=== PATIENT | female | born 1975 | race Caucasian/White ===

== ENCOUNTER 2022-03-28 22:24 | Inpatient (IN) | payer OTHER ==
[~2022-03-28] VITALS: Ht 167.6 cm; Wt 81.6 kg
[~2022-03-28 22:24] MED LIST: COZAAR25 MG PO
[2022-03-31] MEDS ORDERED: MEGESTROL ACETA40 MG PO (13:01)
== END 2022-03-31 13:35 | disposition home or self-care (01) | DRG 761 ==
LOC: ER 22:24 → SEC-K 03-29 16:33 → OB/GYN 03-29 16:33
PROVIDERS: ADMIT Obstetrics & Gynecology; ATTEND Obstetrics & Gynecology
PROC: BU4CZZZ Ultrasonography of Uterus and Ovaries (ICD-10-PCS; 2022-03-29)
PROC: 30233N1 Transfusion of Nonautologous Red Blood Cells into Peripheral Vein, Percutaneous Approach (ICD-10-PCS; principal; 2022-03-30)
DX: N92.1 Excessive and frequent menstruation with irregular cycle (principal); Z20.822 Contact with and (suspected) exposure to COVID-19

== ENCOUNTER 2022-04-05 05:55 | Day surgery (SDC) | payer OTHER ==
[~2022-04-05 05:55] MED LIST changes: +MEGESTROL ACETA40 MG PO
== END 2022-04-05 14:10 | disposition home or self-care (01) ==
LOC: CIR.AMB 05:55
PROVIDERS: ATTEND Obstetrics & Gynecology
DX: D25.0 Submucous leiomyoma of uterus (principal); N80.0 Endometriosis of uterus; N84.0 Polyp of corpus uteri; Z20.822 Contact with and (suspected) exposure to COVID-19; I10 Essential (primary) hypertension; J45.909 Unspecified asthma, uncomplicated; Z71.6 Tobacco abuse counseling; F17.210 Nicotine dependence, cigarettes, uncomplicated; E66.9 Obesity, unspecified

== ENCOUNTER 2022-05-08 08:25 | Inpatient (IN) | payer OTHER ==
[~2022-05-08] VITALS: Ht 167.6 cm; Wt 81.6 kg
[2022-05-11] MEDS ORDERED: COLACE100 MG PO (11:03)
[2022-05-11] MEDS ORDERED: SIMETHICONE125 M1 PO (11:05)
[2022-05-11] MEDS ORDERED: DICLOFENAC POTA50 MG PO (11:06)
[2022-05-11] MEDS ORDERED: ACETAMINOPHEN-1 EAC2 PO (11:10)
== END 2022-05-11 12:53 | disposition home or self-care (01) | DRG 743 ==
LOC: SURG 05-10 07:43 → O/R 05-10 08:15 → SURG 05-10 11:00 → OB/GYN 05-10 16:55
PROVIDERS: ADMIT Obstetrics & Gynecology; ATTEND Obstetrics & Gynecology
PROC: 0UT74ZZ Resection of Bilateral Fallopian Tubes, Percutaneous Endoscopic Approach (ICD-10-PCS; 2022-05-10)
PROC: 0UT94ZZ Resection of Uterus, Percutaneous Endoscopic Approach (ICD-10-PCS; principal; 2022-05-10 11:00)
DX: D25.1 Intramural leiomyoma of uterus (principal); D25.0 Submucous leiomyoma of uterus; N72 Inflammatory disease of cervix uteri; N84.0 Polyp of corpus uteri; N80.0 Endometriosis of uterus; D50.0 Iron deficiency anemia secondary to blood loss (chronic); Z20.822 Contact with and (suspected) exposure to COVID-19